=== PATIENT | male | born 1985 | race Caucasian/White ===

== ENCOUNTER 2016-12-17 21:41 | Emergency (ER) | payer SELFPAY ==
[2016-12-17] MEDS ORDERED: LORazepam 2 MG/ML INJ IVP ONE (21:47)
[2016-12-17] MEDS ORDERED: NS 1,000 ML IV ONE (21:47)
--- NOTE | 2016-12-17 21:58 | CPEKG ---
Heart Rate: 120 RR Interval: 500 P-R Interval: 132 QRSD Interval: 96 QT Interval: 344 QTC Interval: 486 P Trumb[place]: 54 QRS [place]: 62 T Wave [place]: -25 EKG Severity - ABNORMAL ECG - EKG Impression: SINUS TACHYCARDIA EKG Impression: PROBABLE LEFT VENTRICULAR HYPERTROPHY EKG Impression: NONSPECIFIC T ABNORMALITIES, INFERIOR LEADS EKG Impression: BORDERLINE PROLONGED QT INTERVAL Electronically Signed By: Larissa Lloyd 18-Dec-2016 00:02:46
[2016-12-17 22:01] VITALS: TEMP 97.9
--- NOTE | 2016-12-17 23:13 | EDPHY ---
H & P Time Seen by Provider: 12/17/16 21:46 HPI/ROS: HPI Heart racing, anxious after on known drug use. 31-year-old male by ambulance. Patient reports that he smoked marijuana that he thinks was laced with an unknown drug. He comes into the emergency department feeling very anxious with a complaint of his heart racing. No chest pain. No shortness of breath. ROS: Constitutional: No fever, no chills. As above Eyes: No discharge. No changes in vision. ENT: No sore throat. No nasal congestion or rhinorrhea. Respiratory: No cough. No shortness of breath. Cardiac: No chest pain, as above. Gastrointestinal: No abdominal pain, no vomiting, no diarrhea. Genitourinary: No hematuria. No dysuria or increased frequency with urination. Musculoskeletal: No back pain. No neck pain. No myalgias or arthralgias. Skin: No rashes. Neurological: No headache. No focal weakness or altered sensation. Past medical history: He denies any significant past medical history. Social history: Smoker. Drinks alcohol socially. Recreational drug use. Physical Exam: General Appearance: Alert, anxious. This patient is responding to questions appropriately and in full sentences. This patient appears well-hydrated and well-nourished. No voice changes. Eyes: Pupils equal and round no pallor or injection. No lid edema, erythema or injection. ENT, Mouth: Mucous membranes are moist. The pharyngeal tissues are unremarkable. No edema or swelling. No asymmetry suggestive of abscess. No erythema or exudates. No stridor on auscultation of his neck. Respiratory: There are no retractions, lungs are clear to auscultation with good air movement bilaterally. Cardiovascular: Regular rate and rhythm. Tachycardic. No murmur. Gastrointestinal: Abdomen is soft and nontender, no masses, bowel sounds normal. No focal tenderness at McBurney's point. No Mcfarland sign. Neurological: Motor sensory function is grossly intact. Cranial nerves are normal. Gait is normal. Skin: Warm and dry, no rashes. Musculoskeletal: Neck is supple and nontender. Extremities are symmetrical. All joints range without pain or impingement. Psychiatric: As above. No depression. Database: EKG: EKG time is 9:48 p.m.; EKG shows a narrow complex normal sinus tachycardia with a ventricular rate of 120. Possible left ventricular hypertrophy. The OK, QRS, QT intervals are within normal limits. There are no ST-T wave changes indicative of ischemic or injury pattern. No evidence of right heart strain. Interpreted by me. Imaging: Procedures: Emergency department course: IV placed. Vital signs reviewed. Patient afebrile, tachycardic at 1:40 a.m. on arrival. Patient started on IV normal saline with 1 L to be given over 1 hour. Patient given 2 mg of IV Ativan. 11:15 p.m., patient re-evaluated. Vital signs reviewed. electronic device monitor shows a narrow complex sinus rhythm with ventricular rate of 71. Blood pressure 113/ 72. He is easily arousable. He is feeling much better. Plan will be to observe him in the emergency department for another hour. He is up and ambulatory he will be discharged to home with a sober ride. Follow-up and return to emergency department precautions reviewed with him. Liabilities of recreational drug use discussed. Differential Diagnosis: The differential diagnosis on this patient includes but is not limited to sympathomimetic toxidrome. Ventricular tachycardia, other arrhythmia unlikely. This represents a partial list of diagnoses considered. These considerations are based on history, physical exam, past history, reassessment and diagnostic testing. Smoking Status: Current every day smoker Constitutional: Initial Vital Signs Temperature (C) 36.6 C 12/17/16 21:41 Heart Rate 140 H 12/17/16 21:41 Respiratory Rate 22 H 12/17/16 21:41 Blood Pressure 138/96 H 12/17/16 21:41 O2 Sat (%) 100 12/17/16 21:41 O2 Delivery Mode Room Air O2 (L/minute) 2 Allergies/Adverse Reactions: No Known Allergies Allergy (Unverified 12/17/16 21:56) Home Medications: Medication Instructions Recorded NK [No Known Home Meds] 12/17/16 Medical Decision Making - Data Points Medications Given: Discontinued Medications Sodium Chloride (Ns) 1,000 mls @ 0 mls/hr IV EDNOW ONE; Wide Open PRN Reason: Protocol Stop: 12/17/16 21:48 Last Admin: 12/17/16 21:57 Dose: 1,000 mls Lorazepam (Ativan Injection) 2 mg IVP EDNOW ONE Stop: 12/17/16 21:48 Last Admin: 12/17/16 21:56 Dose: 2 mg Departure - Departure Disposition: Home, Routine, Self-Care Clinical Impression: Drug reaction, Tachycardia Condition: Good Instructions: Adverse Drug Reaction (ED) Additional Instructions: Read and follow provided instructions. Follow-up with your primary care physician in 1-2 days for re-evaluation as needed. Do not use drugs. Return to the emergency department for worsening symptoms or other serious concerns. Referrals: Patient,NotPresent [Primary Care Provider] - As per Instructions
[2016-12-18 01:07] VITALS: BP 126/78; PULSE 78; RESP 18; O2SAT 99
== END 2016-12-18 00:50 | disposition home or self-care (01) ==
DX: R00.0 Tachycardia, unspecified (principal); T50.905A Adverse effect of unspecified drugs, medicaments and biological substances, initial encounter; F17.200 Nicotine dependence, unspecified, uncomplicated; E86.9 Volume depletion, unspecified
CPT/HCPCS: 96374; J2060